=== PATIENT | female | born 1985 | race Caucasian/White ===

== ENCOUNTER 2019-03-28 11:55 | Day surgery (SDC) | payer OTHER ==
[2019-03-25 15:42] VITALS: BMI 42.0
[~2019-03-28] VITALS: Ht 154.9 cm; Wt 97.0 kg
[2019-03-28] VITALS (14 sets, daily range): BP systolic 122–135; BP diastolic 57–93; PULSE 50–100; RESP 15–20; Ht 154.9 cm; Wt 97.0 kg
[2019-03-28] MEDS ORDERED: CEFAZOLIN 2 GM/50 ML (PMX) 50 ML IVPB ONE (13:00)
[2019-03-28] MEDS ORDERED: SOD CHLORIDE 0.9% 1,000 ML IV ONE (13:00)
--- NOTE | 2019-03-28 15:21 | PREAC ---
Date/Time of Note Date/Time of Note DATE: 03/28/19 TIME: 15:20 Anesthesia Eval and Record Evaluation Time Pre-Procedure Interview DATE: 03/28/19 TIME: 15:20 Age 33 Sex female NPO: 8 hrs Preoperative diagnosis GALLSTONES Planned procedure LAP CHOLY Past Medical History Past Medical History: Includes GI: Morbid obesity Psych: Anxiety Surgery & Anesthesia Issues No known issue Meds Anticoagulation: No Beta León within 24 hr: No Reason Beta León not given: Pt. not on B-León No Active Prescriptions or Reported Meds Current Medications Sodium Chloride 1,000 ml @ 75 mls/hr [id number] ONCE IV Last administered on 03/28/19at 13:34; Admin Dose 75 MLS/HR; Start 03/28/19 at 13:00; Stop 03/29/19 at 02:19 Meds reviewed: Yes Allergies Coded Allergies: No Known Allergies (Verified Allergy, Unknown, 03/28/19) Allergies Reviewed: Yes Labs/Studies Labs Reviewed: Reviewed by anesthesiologist Result Diagram: 03/28/19 1250 03/28/19 1345 Laboratory Tests 03/28/19 12:50 03/28/19 13:45 test: N/A Pre-procedure Exam Last vitals Vital Signs Date Temp Pulse Resp B/P (MAP) Pulse Ox O2 O2 Flow FiO2 Time Delivery Rate 03/28/19 99.0 80 16 135/93 98 Room Air 13:20 (107) Airway: Adequate mouth opening, Adequate thyromental dist Mallampati: Mallampati III Teeth: Normal Lung: Normal Heart: Normal ASA Physical Status ASA physical status: 2 Emergency: None Pre-operative Attestations Prior to commencing anesthesia and surgery, the patient was re-evaluated, there was verification of: *The patient's identity *The results of appropriate recent lab work and preoperative vital signs *The above evaluation not changing prior to induction *Anesthetic plan, risk benefits, alternative and complications discussed with pa tient/family; questions answered; patient/family understands, accepts and wishes to proceed. TAVO GREEN DO Mar 28, 2019 15:21
[2019-03-28] MEDS ORDERED: LIDOCAINE 2% (SDV) 5 ML INJ ONE (15:24)
[2019-03-28] MEDS ORDERED: ROCURONIUM 50 MG INJ ONE (15:24)
[2019-03-28] MEDS ORDERED: PROPOFOL 20 ML ONE (15:24)
[2019-03-28] MEDS ORDERED: MIDAZOLAM 1 MG/ML 2 ML INJ ONE (15:24)
[2019-03-28] MEDS ORDERED: HYDROmorphONE 1 MG/5 ML IV SYRINGE IV PRN ×3 (15:30)
[2019-03-28] MEDS ORDERED: ROPIVACAINE 0.5 % 30 ML VIAL ONE (15:31)
[2019-03-28] MEDS ORDERED: CEFAZOLIN 1 GM INJ ONE (15:39)
[2019-03-28] MEDS ORDERED: DEXAMETHASONE 4 MG/ML 5 ML INJ ONE (15:39)
[2019-03-28] MEDS ORDERED: ONDANSETRON 4 MG INJ ONE (15:39)
--- NOTE | 2019-03-28 16:11 | OPR ---
Date/Time of Note Date/Time of Note DATE: 03/28/19 TIME: 16:09 Operative Report Procedure Date: Mar 28, 2019 Preoperative Diagnosis symptomatic gallstones Postoperative Diagnosis same Operation/Procedure Performed laparoscopic cholecystectomy Surgeon see signature line Director Peoplesoft none Anesthesia Type: general Estimated Blood Loss: 0 - 10 ml's Transfusion none Specimen gallbladder Grafts/Implants none Complications none Pt Condition Post Procedure: stable Indications This is a 33-year-old female with some tender gallstones. She required surgical excision of her gallbladder. Risks alternatives benefits and personal were discussed the patient. Patient expressed understanding and consents to the operation. Procedure Description Patient is taken to the OR and prepped and draped in usual sterile fashion. Surgical timeout was performed. IV antibiotics given. Infraumbilical transverse incision was made with a 15 blade. Dissection with cautery was carried down to the fascia. The fascia was grasped with Brody's and divided with curved Bernal scissors. 0 Vicryl use this was placed into the fascia. Schwarz trocar is introduced. Pneumoperitoneum is established. Midepigastric 12 mm optical trochars placed under direct visualization. Right upper quadrant upper flank 5 mm optical trochars were placed under direct visualization. Upon initial inspection there is adhesions to the gallbladder which obtain a bluntly. The gallbladder is grasped with the fundus and retracted and lateral and cephalad direction. [place] graspers were used to dissect out the cystic duct and cystic artery. The critical view was established. The cystic duct is divided to close proximal to distal and the division is performed laparoscopic scissors. Cystic artery was divided to close proximal clip distal and the division is performed with laparoscopic scissors. The gallbladder was taken of the gallbladder bed. Good hemostasis established. The gallbladder is retrieved Endo Catch bag. All ports were removed under direct visualization. 0 Vicryl use this was tied down. Skin is closed and skin petra. A tap block was provided by the anesthesiology to begin the case. Dry dressings were applied. Darin BARTON Mar 28, 2019 16:11
[2019-03-28] MEDS ORDERED: FENTAnyl 50 MCG/ML VIAL ONE (16:14)
[2019-03-28] MEDS ORDERED: DIPHENHYDRAMINE 50 MG INJ ONE (16:24)
[2019-03-28] MEDS ORDERED: HYDROCODONE/APAP (5/325) TAB PO ONE (16:30)
[2019-03-28] MEDS ORDERED: DIPHENHYDRAMINE 50 MG INJ IV ONE (16:30)
== END 2019-03-28 18:47 | disposition home or self-care (01) ==
LOC: SDS 11:55
PROVIDERS: ATTEND Surgery
DX: K80.10 Calculus of gallbladder with chronic cholecystitis without obstruction (principal)
CPT/HCPCS: 47562; 80053; 84703; 85025; 85610; 85730; 88304; J0690; J1100; J1170; J1200; J2250; J2405; J2795; J3010; Z7512; Z7610